=== PATIENT | female | born 1940 | race Caucasian/White ===

== ENCOUNTER 2016-10-18 16:29 | Inpatient (IN) ==
--- NOTE | 2016-10-18 16:59 | Diag Imaging Result Doc PS360 ---
EXAM: FLAT/UPRIGHT ABD/1 VIEW CHEST HISTORY: abd pain TECHNIQUE: Flat and upright abdomen with AP chest COMMENT: There are numerous air-fluid levels in the small bowel. There is some fluid in the stomach. There is minimal stool and gas in the distal colon. No evidence organomegaly or mass is present. There are no previous studies. The appearance of the chest has not changed significantly since 03/07/2014. IMPRESSION: Small bowel obstruction. Electronically signed by Rodrick Dumont 10/18/2016 4:57 PM
[2016-10-18 17:04] LABS: MANUAL DIFF NEEDED? NO
[2016-10-18 17:12] LABS: BASO% 0.3 % (0.0-0.8); EOS# 0.14 X1000 (0.0-0.7); EOS% 0.9 % (0.0-10.0); HEMATOCRIT 39.9 % (37.0-47.0); HEMOGLOBIN 13.6 g/dL (12.0-16.0); IMM GRAN# 0.04 X1000 (0.0-0.04); IMM GRAN% 0.3 % (0.0-0.5); LYMPH# 3.98 X1000 (1.2-3.4); MCH 31.5 PG (27-31); MCHC 34.1 g/dL (33-37); MCV 92.4 FL (81-99); MONO# 0.85 X1000 (0.11-0.59); MONO% 5.5 % (1.7-9.3); MPV 10.5 FL (7.4-10.4); PLT 339 X1000 (130-400); RBC 4.32 XMIL (4.2-5.4)
[2016-10-18 17:36] LABS: OCCULT BLOOD 1 NEGATIVE (NEGATIVE)
[2016-10-18] MEDS ORDERED: ZOFRAN ODT PO ONE (17:37)
[2016-10-18 17:57] LABS: AGAP 12; ALBUMIN 4.9 g/dL (3.5-5.0); ALKALINE PHOSPHATASE 66 U/L (32-104); AMYLASE 94 U/L (20-200); BUN 22 mg/dL (8-22); CALCIUM 10.5 mg/dL (8.8-10.2); CHLORIDE 95 mmol/L (98-107); COSMO 273; GOT 18 U/L (10-30); GPT 11 U/L (10-36); LIPASE 22 U/L (13-60); POTASSIUM 3.7 mmol/L (3.5-5.1); SODIUM 134 mmol/L (136-145); TCO2 28 mmol/L (25-35); TOTAL PROTEIN 7.9 g/dL (6.3-8.3)
[2016-10-18] MEDS ORDERED: NUBAIN IV ONE (17:58)
--- NOTE | 2016-10-18 18:16 | PROVIDER DOCUMENTATION ---
This chart was entered by Mercedes Hickman Scribe, acting as scribe for Tan Amaral MD. HPI-Abdominal Pain/GI Problem - General Source: patient - History of Present Illness-ABD Nature of Presenting Problems: 75 year old female presents to the ER with complaint of abdominal pain, nausea and vomiting since this am. Pt states she had a colonoscopy and EGD 2-3 weeks ago due to reoccurring diarrhea but has not received the results yet. Pt also complains of having gas and states that she took gas-x which usually relieves her symptoms but in this case it did not. Pt denies fever. Abdominal Pain Onset Location: reports: generalized abdomen Onset/Duration: reports: this morning Timing: reports: still present Associated Symptoms: reports: diarrhea, nausea, vomiting Last BM: this morning Rectal Bleeding: reports: none <Tan Amaral - Last Filed: 10/18/16 18:14> - General Source: patient - History of Present Illness-ABD Abdominal Pain Onset Location: reports: generalized abdomen Pain Radiation: reports: no radiation Quality of Pain: reports: aching Severity in ED: reports: severe Onset/Duration: reports: this morning Timing: reports: still present Activities at Onset: reports: light activity Exposure to sick contacts?: No Modifying Factors: improves with: nothing, eating Associated Symptoms: reports: diarrhea, nausea, vomiting Last BM: this morning Rectal Bleeding: reports: none Rectal Pain: reports: none Emesis Description: reports: clear Bruising or Bleeding Gums?: No Similar Symptoms Previously?: Yes <Elvis Hughes - Last Filed: 10/21/16 01:21> - General Chief Complaint: Abdominal Pain Stated Complaint: ABD PAIN/VOMITING Time Seen by Provider: 10/18/16 17:36 Allergies/Adverse Reactions: Patient Allergies Allergy/AdvReac Type Severity Reaction Status Date / Time No Known Allergies Allergy Verified 10/18/16 16:38 Home Medications: Home Medication List Medication Instructions Recorded Confirmed Last Taken Type Lisinopril/Hydrochlorothiazide 1 each PO DAILY 03/07/14 10/18/16 11/12/15 18:00 History [Zestoretic 20-12.5 Tablet] SIMVAstatin [Zocor] 1 mg PO DAILY 03/07/14 10/18/16 11/12/15 18:00 History Aspirin 81 mg PO DAILY 11/07/15 10/18/16 11/10/15 19:00 History Glimepiride [Amaryl] 2 mg PO DAILY 11/07/15 10/18/16 11/12/15 09:00 History Metformin HCl 500 mg PO BID 11/07/15 10/18/16 11/12/15 18:00 History Multivitamin [Multivitamins] 1 each PO DAILY 11/07/15 10/18/16 11/12/15 09:00 History Ubidecarenone [Co Q-10] 100 mg PO DAILY 11/07/15 10/18/16 11/12/15 09:00 History Biotin 10,000 mg PO DAILY 11/13/15 10/18/16 11/12/15 09:00 History Cholecalciferol (Vitamin D3) 1,000 unit PO DAILY 11/13/15 10/18/16 11/12/15 09: 00 History [D3-2000] Oxybutynin [Ditropan] 5 mg PO BID 11/13/15 10/18/16 11/13/15 04:30 History Potassium Chloride E.r. [Klor-Con] 20 meq PO DAILY 11/13/15 10/18/16 11/12/15 09 :00 History Vitamin B Complex 1 each PO DAILY 11/13/15 10/18/16 11/12/15 09:00 History Review of Systems - Adult - REVIEW OF SYSTEMS - ADULT Constitutional: denies: chills, fever Eyes: reports: no symptoms reported Ears, Nose, Mouth & Throat: reports: no symptoms reported Cardiovascular: reports: no symptoms reported Respiratory: reports: no symptoms reported Gastrointestinal: reports: abdominal pain, diarrhea, nausea, vomiting. denies: rectal bleeding Genitourinary: reports: no symptoms reported Musculoskeletal: reports: no symptoms reported Integumentary: reports: no symptoms reported Neurological: reports: no symptoms reported Psychiatric: reports: no symptoms reported Endocrine: reports: no symptoms reported Hematologic/Lymphatic: reports: no symptoms reported Allergic/Immunologic: reports: no symptoms reported All Other Systems: Reviewed and Negative <Tan Amaral - Last Filed: 10/18/16 18:14> - REVIEW OF SYSTEMS - ADULT ROS:: limited per condition Constitutional: reports: no symptoms reported. denies: chills, fever Eyes: reports: no symptoms reported Ears, Nose, Mouth & Throat: reports: no symptoms reported Cardiovascular: reports: no symptoms reported Respiratory: reports: no symptoms reported Gastrointestinal: reports: abdominal pain, diarrhea, nausea, vomiting Genitourinary: reports: no symptoms reported Musculoskeletal: reports: no symptoms reported Integumentary: reports: no symptoms reported Neurological: reports: no symptoms reported Psychiatric: reports: no symptoms reported Endocrine: reports: no symptoms reported Hematologic/Lymphatic: reports: no symptoms reported Allergic/Immunologic: reports: no symptoms reported All Other Systems: Reviewed and Negative <Elvis Hughes - Last Filed: 10/21/16 01:21> Past History - Adult - PAST MEDICAL HISTORY-ADULT Review of Records: reports: Nursing Assessment Review, Medications Reviewed Cardiovascular: reports: HTN, hyperlipidemia, murmur Endocrine/Immune: reports: Diabetes - PRIOR SURGERIES/PROCEDURES Surgical/Procedure History: reports: hysterectomy - IMMUNIZATION STATUS Childhood Immunizations: See Nurse Assessment Flu Vaccine: See Nurse Assessment - FAMILY HISTORY Family History: reviewed, not pertinent <Tan Amaral - Last Filed: 10/18/16 18:14> - PAST MEDICAL HISTORY-ADULT Review of Records: reports: Old Records Reviewed, Nursing Assessment Review, Medications Reviewed, Social history reviewed & non-contributory. Major Childhood Illnesses: reports: denies history Cardiovascular: reports: HTN, hyperlipidemia, murmur Respiratory: reports: denies history Gastrointestinal: reports: denies history Obstetrical/Gynecological: reports: denies history Genitourinary: reports: denies history Musculoskeletal: reports: denies history Neurological: reports: denies history Endocrine/Immune: reports: Diabetes Diabetes Type: Type 2 Other Conditions: reports: denies history - PRIOR SURGERIES/PROCEDURES Surgical/Procedure History: reports: hysterectomy - IMMUNIZATION STATUS Childhood Immunizations: See Nurse Assessment Flu Vaccine: See Nurse Assessment - FAMILY HISTORY Family History: reviewed, not pertinent - SOCIAL HISTORY Smoking: denies Substance Use: none/never <Elvis Hughes - Last Filed: 10/21/16 01:21> Physical Exam-General - CONSTITUTIONAL General Appearance: alert, no apparent distress - EYES Eyes: PERRL/EOMI, pink conjunctivae - HEAD, EARS, NOSE, MOUTH & THROAT HENMT: normocephalic/atraumatic, moist mucous membranes - NECK Neck: non-tender, normal inspection - RESPIRATORY Respiratory: lungs clear, normal breath sounds - CARDIOVASCULAR Cardiovascular: normal peripheral pulses, regular rate, rhythm - GASTROINTESTINAL (ABDOMEN) Abdominal Exam: soft, abnormal bowel sounds, distended, tenderness - MUSCULOSKELETAL Back Exam: no CVA tenderness, no vertebral tenderness Extremity: non-tender, normal inspection - SKIN Integumentary: normal color, warm/dry - NEUROLOGIC Neurologic: grossly normal, no motor/sensory deficits - PSYCHIATRIC Psych/Mental Status: normal mood/affect, normal thought content, normal thought process, oriented x 3 <Tan Amaral - Last Filed: 10/18/16 18:14> - PHYSICAL EXAM-ADULT Initial Vital Signs Reviewed: Yes - CONSTITUTIONAL General Appearance: alert, no apparent distress - EYES Eyes: PERRL/EOMI, pink conjunctivae - HEAD, EARS, NOSE, MOUTH & THROAT HENMT: normocephalic/atraumatic, moist mucous membranes - NECK Neck: non-tender, normal inspection - RESPIRATORY Respiratory: lungs clear, normal breath sounds - CARDIOVASCULAR Cardiovascular: normal peripheral pulses, regular rate, rhythm - GASTROINTESTINAL (ABDOMEN) Abdominal Exam: soft, abnormal bowel sounds, distended, tenderness - MUSCULOSKELETAL Back Exam: no CVA tenderness, no vertebral tenderness Extremity: non-tender, normal inspection - SKIN Integumentary: normal color, warm/dry - NEUROLOGIC Neurologic: grossly normal, no motor/sensory deficits - PSYCHIATRIC Psych/Mental Status: normal mood/affect, normal thought content, normal thought process, oriented x 3 <Elvis Hughes - Last Filed: 10/21/16 01:21> Progress - PLAN OF CARE/RESULTS Progress/Plan/Lab Results: Vital Signs - 8 hr 10/18/16 16:34 Temperature 97.8 F Pulse Rate 67 Respiratory Rate 18 Blood Pressure 98/62 O2 Sat by Pulse Oximetry 100 Laboratory Results - last 24 hr 10/18/16 10/18/16 17:03 17:27 WBC 15.33 H RBC 4.32 Hgb 13.6 Hct 39.9 MCV 92.4 MCH 31.5 H MCHC 34.1 RDW Std Deviation 13.9 Plt Count 339 MPV 10.5 H Immature Gran % (Auto) 0.3 Neut % (Auto) 67.0 Lymph % (Auto) 26.0 Morrow % (Auto) 5.5 Eos % (Auto) 0.9 Baso % (Auto) 0.3 Immature Gran # (Auto) 0.04 Neut # (Auto) 10.28 H Lymph # (Auto) 3.98 H Morrow # (Auto) 0.85 H Eos # (Auto) 0.14 Baso # (Auto) 0.04 Stool Occult Blood NEGATIVE Orders Category Date Time Status Saline Loc DIRECTED Care 10/18/16 16:31 Active NPO Diet 10/18/16 16:31 Active FLAT/UPRIGHT ABD/1 VIEW CHEST [RAD] Stat Exams 10/18/16 16:31 Completed AMYLASE [CHEM] Stat Lab 10/18/16 17:03 Received CBC WITH ELECTRONIC DIFF [HEME] Stat Lab 10/18/16 17:03 Completed COMPREHENSIVE METABOLIC PANEL [CHEM] Stat Lab 10/18/16 17:03 Received LIPASE [CHEM] Stat Lab 10/18/16 17:03 Received OCCULT BLOOD SCREEN STOOL PL Stat Lab 10/18/16 17:[address] W/POSS RFLX CULT [URINALYSIS] Stat Lab 10/18/16 16:31 Uncollected Result Diagrams: 10/18/16 17:03 10/18/16 17:03 - XRAY 1 XRAY Study: Abdomen Impression: Abnormal XRAY Interpretation: small bowel obstruction per radiologist - CHANGE OF SHIFT REPORT (ED Provider) Report Given and Care Transferred to:: [facility] Time of Transfer: 18:15 Items Pending: CT/MRI Results <Tan Amaral - Last Filed: 10/18/16 18:14> - PLAN OF CARE/RESULTS Progress/Plan/Lab Results: Vital Signs - 8 hr 10/18/16 16:34 10/18/16 19:50 Temperature 97.8 F 96 F L Pulse Rate 67 75 Respiratory Rate 18 16 Blood Pressure 98/62 140/66 O2 Sat by Pulse Oximetry 100 100 Laboratory Results - last 24 hr 10/18/16 10/18/16 10/18/16 17:03 17:03 17:27 WBC 15.33 H RBC 4.32 Hgb 13.6 Hct 39.9 MCV 92.4 MCH 31.5 H MCHC 34.1 RDW Std Deviation 13.9 Plt Count 339 MPV 10.5 H Immature Gran % (Auto) 0.3 Neut % (Auto) 67.0 Lymph % (Auto) 26.0 Morrow % (Auto) 5.5 Eos % (Auto) 0.9 Baso % (Auto) 0.3 Immature Gran # (Auto) 0.04 Neut # (Auto) 10.28 H Lymph # (Auto) 3.98 H Morrow # (Auto) 0.85 H Eos # (Auto) 0.14 Baso # (Auto) 0.04 Sodium 134 L Potassium 3.7 Chloride 95 L Carbon Dioxide 28 Anion Gap 12 BUN 22 Creatinine 0.7 Estimated GFR/1.73 m2 > 60 BUN/Creatinine Ratio 31 Glucose 131 H Calculated Osmolality 273 Calcium 10.5 H Total Bilirubin 0.40 AST 18 ALT 11 Alkaline Phosphatase 66 Total Protein 7.9 Albumin 4.9 Globulin 3.0 Albumin/Globulin Ratio 2.0 Amylase 94 Lipase 22 Stool Occult Blood NEGATIVE Orders Category Date Time Status Saline Loc DIRECTED Care 10/18/16 16:31 Active NPO Diet 10/18/16 16:31 Active ABDOMEN/PELVIS W/PO AND IV CON [CT] Stat Exams 10/18/16 17:43 Completed FLAT/UPRIGHT ABD/1 VIEW CHEST [RAD] Stat Exams 10/18/16 16:31 Completed AMYLASE [CHEM] Stat Lab 10/18/16 17:03 Completed CBC WITH ELECTRONIC DIFF [HEME] Stat Lab 10/18/16 17:03 Completed COMPREHENSIVE METABOLIC PANEL [CHEM] Stat Lab 10/18/16 17:03 Completed LIPASE [CHEM] Stat Lab 10/18/16 17:03 Completed OCCULT BLOOD SCREEN STOOL PL Stat Lab 10/18/16 17:[address] W/POSS RFLX CULT [URINALYSIS] Stat Lab 10/18/16 16:31 Uncollected Morphine Med 10/18/16 18:39 Discontinued 4 mg IV NOW ONE Nalbuphine [Nubain] Med 10/18/16 17:58 Discontinued 5 mg IV NOW ONE Ondansetron Odt [Zofran Odt] Med 10/18/16 17:37 Discontinued 4 mg PO NOW ONE Promethazine [Phenergan] Med 10/18/16 18:37 Discontinued 12.5 mg IV NOW ONE Sodium Chloride 0.9% Med 10/18/16 18:37 Discontinued 10 ml INJ NOW ONE Result Diagrams: 10/20/16 05:46 10/20/16 05:46 - CT/MRI 1 CT Study: Abdomen (DISTAL SMALL BOWEL OBSTRUCTION) <Elvis Hughes - Last Filed: 10/21/16 01:21> Departure <Tan Amaral - Last Filed: 10/18/16 18:14> - Departure Date of Disposition Decision: 10/20/16 Time of Disposition Decision: 21:02 Certified Medical Emergency: Emergent - Critical Care Note This patient required my direct & personal management of CC.: No <Elvis Hughes - Last Filed: 10/21/16 01:21> - Departure DIAGNOSIS: Small bowel obstruction due to adhesions Disposition: ADMITTED INPATIENT 09 Condition: Stable Attestation - Physician/ NACHO Attestation The physician spent face to face time with patient:: Yes Advanced Practice Provider documentation review:: Supervising physician onsite and consulted in the evaluation and care of this patient. The physician did have a face to face encounter with the patient. <Elvis Hughes - Last Filed: 10/21/16 01:21> This chart was documented by the indicated scribe, (Mercedes Hickman, [employer]) and accurately reflects the services I performed and decisions made by me, Tan Amaral MD, as attested by the provider's signature.
[2016-10-18] MEDS ORDERED: PHENERGAN IV ONE (18:37)
[2016-10-18] MEDS ORDERED: SODIUM CHLORIDE 0.9% INJ ONE (18:37)
[2016-10-18] MEDS ORDERED: MORPHINE IV ONE ×2 (18:39→23:00)
--- NOTE | 2016-10-18 20:54 | Diag Imaging Result Doc PS360 ---
EXAM: ABDOMEN/PELVIS W/PO AND IV CON HISTORY: pain TECHNIQUE: CT of the abdomen and pelvis with intravenous and oral contrast with radiation dose reduction (clarity.) COMMENT: There is mild dependent atelectasis present particularly in the posterior costophrenic sulci. There is some atherosclerotic calcification in the abdominal aorta. There is no evidence of aneurysm. The mesenteric vessels are patent. There are granulomata in the liver and spleen. There are no gallstones. There is free fluid present in the right paracolic gutter. The small bowel is markedly distended with fluid. The stomach contains some retained secretions. The colon is not distended. The adrenal glands and pancreas are within normal limits. There is a transition just shy of the terminal ileum in the right lower quadrant. Pelvis: The appendix is not clearly identifiable. There is free fluid in the pelvis. There has apparently been hysterectomy. There is some diverticulosis in the sigmoid colon. No definite evidence of diverticulitis is present. The regional skeleton appears to be intact. IMPRESSION: Distal small bowel obstruction. Free fluid. Electronically signed by Rodrick Dumont 10/18/2016 8:52 PM
[2016-10-18] MEDS ORDERED: NS 1,000 ML IV ONE (21:08)
[2016-10-18 21:18] LABS: URINE CULTURE PL NEEDED? NO
[2016-10-18 21:25] LABS: BILIRUBIN URINE NEGATIVE (NEGATIVE); BLOOD URINE 1+ (NEGATIVE); CLARITY CLEAR (CLEAR); COLOR YELLOW; GLUCOSE URINE NEGATIVE (NEGATIVE); LEUKOCYTES URINE NEGATIVE (NEGATIVE); NITRITE URINE NEGATIVE (NEGATIVE); PROTEIN URINE TRACE mg/dL (NEGATIVE); SP GRAVITY URINE 1.005; UROBILINOGEN URINE NORMAL
[2016-10-18 21:59] LABS: URINE SOURCE CATH
[2016-10-18 22:00] LABS: URINE EPITHELIAL CELLS <10 /HPF (<10); URINE RBC <10 /HPF (<10); URINE WBC <10 /HPF (<10)
[2016-10-18] MEDS: ZOFRAN IV PRN (23:00)
--- NOTE | 2016-10-19 05:43 | Diag Imaging Result Doc PS360 ---
EXAM: CHEST/ABD TUBE PLACEMENT HISTORY: NG tube placement TECHNIQUE: Two views COMPARISON: None. FINDINGS: There is a nasogastric tube overlying the esophagus and stomach. On one of the views the tip appears to be angled back up the esophagus at the GE junction. The lungs are clear. No free air beneath the diaphragm. There are multiple air distended loops of small bowel within the abdomen. Contrast fills the right collecting system. IMPRESSION: Small bowel obstruction. There is a note that the tube was advanced after the second film. Electronically signed by Farhan Roberson 10/19/2016 5:40 AM
[2016-10-19] MEDS ORDERED: NS 1,000 ML IV SCH (08:18)
[2016-10-19] MEDS: MORPHINE IV PRN ×3 (08:57→19:38)
[2016-10-19] MEDS: ZOFRAN IV PRN (09:07)
[2016-10-19 09:28] LABS: HEMATOCRIT 39.8 % (37.0-47.0); HEMOGLOBIN 13.3 g/dL (12.0-16.0); MCH 31.1 PG (27-31); MCHC 33.4 g/dL (33-37); MCV 93.2 FL (81-99); MPV 9.9 FL (7.4-10.4); RBC 4.27 XMIL (4.2-5.4)
[2016-10-19 09:42] LABS: AGAP 11; ALBUMIN 4.2 g/dL (3.5-5.0); ALKALINE PHOSPHATASE 55 U/L (32-104); BUN 20 mg/dL (8-22); CALCIUM 9.2 mg/dL (8.8-10.2); CHLORIDE 100 mmol/L (98-107); COSMO 275; GOT 18 U/L (10-30); GPT 9 U/L (10-36); MAGNESIUM 1.9 mg/dL (1.5-2.7); POTASSIUM 3.8 mmol/L (3.5-5.1); SODIUM 136 mmol/L (136-145); TCO2 25 mmol/L (25-35); TOTAL PROTEIN 7.5 g/dL (6.3-8.3)
--- NOTE | 2016-10-19 09:59 | HISTORY AND PHYSICAL ---
PRIMARY CARE PHYSICIAN: Dr. Escobedo. CHIEF COMPLAINT: Abdominal pain, nausea, vomiting, and diarrhea. HISTORY OF PRESENTING ILLNESS: This is a 75-year-old female who presents to [facility] ER with complaints of generalized abdominal pain , nausea, vomiting, and diarrhea. States that she has had the diarrhea for a couple months. Had a recent EGD/colonoscopy with Dr. Atkins in which she said they removed 1 polyp but otherwise no issues were found. She says that yesterday morning around 4 a.m. she began having generalized abdominal pain, nausea, vomiting, and the diarrhea worsened. She came to the emergency room for evaluation. An abdomen x-ray was obtained that showed a small bowel obstruction. So they did an abdomen and pelvic CT also that showed a distal small bowel obstruction with some free fluid. She had a white blood cell count of 15.33. Her stool for occult blood was negative. So, she was admitted for further evaluation and treatment. PAST MEDICAL HISTORY: Hypertension, hyperlipidemia, diabetes type 2, and a murmur since the age of 12. PAST SURGICAL HISTORY: Hysterectomy and a partial thyroidectomy. FAMILY HISTORY: Noncontributory. SOCIAL HISTORY: She currently lives with family. Denied any tobacco, alcohol, or illicit drug use. ALLERGIES: She has no known drug allergies. HOME MEDICATIONS: All of her medications will be held at this time as she is NPO but she normally takes aspirin 81 mg p.o. daily, biotin 18962 mg p.o. daily, vitamin D3 1000 units p.o. daily, Amaryl 2 mg p.o. daily, Zestoretic 20/12.5 p.o. daily, metformin 500 mg p.o. b.i.d., multivitamin p.o. daily, Ditropan 5 mg p.o. b.i.d., potassium 20 mEq p.o. daily, Zocor 40 mg p.o. daily, CoQ10 100 mg p.o. daily, and vitamin B complex 1 p.o. daily. LABORATORY DATA: Showed a white blood cell count of 15.33, a hemoglobin of 13.6 , hematocrit 39.9, platelets 339,000. Sodium of 134, potassium 3.7, chloride 95, CO2 28, BUN of 22 , creatinine 0.7, glucose 131. Amylase of 94, lipase 22. Urinalysis was negative. Stool for occult blood was negative. Abdomen x-ray showed a small bowel obstruction. Abdomen and pelvic CT showed a distal small bowel obstruction with free fluid. REVIEW OF SYSTEMS: She denied any fever, chills, blurred vision, dizziness, chest pain, coughing, shortness of breath. She was positive for generalized abdominal pain, nausea, vomiting, and diarrhea. Denied any burning or hurting with urination. PHYSICAL EXAMINATION: VITAL SIGNS: Temperature of 97.8 degrees, pulse 67, respirations 18, blood pressure 98/62, and was saturating 100% on room air. Currently, her blood pressure is 133/60. GENERAL: This is a 75-year-old female who is sitting up in the bed and answers all questions appropriately. HEENT: Normocephalic and atraumatic. Pupils are equal, round, reactive to light. Extraocular movements are intact. The oropharynx and nares are clear. NECK: Supple. LUNGS: Clear to auscultation bilaterally with equal lung expansion and chest wall movement. HEART: With regular rate and rhythm. No murmurs, rubs, or gallops. ABDOMEN: Soft. It is tender to palpation throughout the entire abdomen. Hypoactive bowel sounds x4 quadrants. EXTREMITIES: No clubbing, cyanosis, or edema. NEUROLOGICAL: The cranial nerves 2 through 12 are grossly intact. ASSESSMENT: 1. Generalized abdominal pain. 2. Nausea and vomiting. 3. Small bowel obstruction. 4. Diarrhea. 5. Leukocytosis, most likely reactive. PLAN: She was admitted to the medical unit at [place]. We placed an NG tube to low intermittent suction to her right naris. Will consult surgery. Recheck labs in the a.m. Continue her normal saline at 100 mL an hour, morphine 1-2 mg IV q.3 hours, and Zofran 4 mg IV q.4 hours p.r.n. Pt is a full code Dictated by MATY Chowdary for Song Lee MD cc: MATY Chowdary MD Amit V. Vora, MD [facility] CENTERBarrett
--- NOTE | 2016-10-19 17:05 | CONSULTATION ---
DATE OF CONSULTATION: 10/19/2016 CHIEF COMPLAINT: Abdominal pain, nausea, vomiting and diarrhea. HISTORY: This is a 75-year-old, thin lady who has had a 2-month history of diarrhea, had a colonoscopy a month ago with a polyp that was removed, the pathology of which is unknown at this time. Yesterday morning, about 4 a.m., she was awakened with severe crampy abdominal pain. Last bowel movement was 2 days ago. She denies passing any flatus in the past 24 hours. PAST MEDICAL HISTORY: Pertinent for hypertension, hyperlipidemia, type 2 diabetes. PREVIOUS SURGERY: Includes a remote open hysterectomy and a partial thyroidectomy. FAMILY HISTORY: Noncontributory. SOCIAL HISTORY: She is . Lives with her . Denies tobacco alcohol or drug use. She denies any drug allergies. MEDICATIONS: At home include: 1. Aspirin 81 mg daily. 2. Biotin daily. 3. Vitamin D3 daily. 4. Amaryl 2 mg daily. 5. Zestoretic 20/12.5 daily. 6. Metformin 5 mg b.i.d. 7. Multivitamin daily. 8. Ditropan 5 mg b.i.d. 9. Potassium 20 mEq daily. 10. Zocor 40 mg daily. 11. CoQ 10 at 100 mg daily. 12. Vitamin B complex, 1 daily. REVIEW OF SYSTEMS: Negative in all subsystems, except for her gastrointestinal subsystem, where she has the symptoms noted above. EXAMINATION: Vital signs: She is afebrile. Heart rate 77, respiratory rate 18, blood pressure 123/54. Neck: No cervical adenopathy. Lungs: Bilateral breath sounds. Heart: Regular rate and rhythm. Abdomen: Distended, tympanitic. No peritoneal signs are noted. No hernia noted. Extremities: No peripheral edema. Neurologic: She is awake and alert. DIAGNOSTICS/LABORATORIES: White count is 13,900, hemoglobin 13.3. BUN 20, creatinine 0.6. Urine is nitrite-negative. Small bowel obstruction, as noted on CT scan, with a probable point of obstruction in the distal ileum. Her colon is decompressed. ASSESSMENT: Small bowel obstruction. I agree with the nasogastric suction. I have discussed laparoscopy/possible laparotomy with her. She is reflecting. cc: Dandy Santacruz MD
[2016-10-19] MEDS: NS 1,000 ML IV SCH (19:29)
[2016-10-20] MEDS: MORPHINE IV PRN ×2 (00:39→20:58)
[2016-10-20] MEDS: NS 1,000 ML IV SCH ×2 (03:27→11:54)
[2016-10-20 06:25] LABS: HEMATOCRIT 34.7 % (37.0-47.0); HEMOGLOBIN 11.2 g/dL (12.0-16.0); MCH 30.8 PG (27-31); MCHC 32.3 g/dL (33-37); MCV 95.3 FL (81-99); MPV 10.2 FL (7.4-10.4); RBC 3.64 XMIL (4.2-5.4)
[2016-10-20 06:45] LABS: AGAP 9; ALBUMIN 3.4 g/dL (3.5-5.0); ALKALINE PHOSPHATASE 47 U/L (32-104); BUN 13 mg/dL (8-22); CALCIUM 7.6 mg/dL (8.8-10.2); CHLORIDE 104 mmol/L (98-107); COSMO 276; GOT 14 U/L (10-30); GPT 7 U/L (10-36); POTASSIUM 3.3 mmol/L (3.5-5.1); SODIUM 138 mmol/L (136-145); TCO2 25 mmol/L (25-35); TOTAL PROTEIN 5.7 g/dL (6.3-8.3)
--- NOTE | 2016-10-20 07:47 | Diag Imaging Result Doc PS360 ---
EXAM: FLAT/UPRIGHT ABD/1 VIEW CHEST HISTORY: bowel obstruction TECHNIQUE: Flat and upright abdomen with AP chest COMMENT: There is gas and stool in the colon. There is an NG tube with its tip in the stomach. The small bowel and stomach are not distended. The air-fluid levels which were present on 07/18/2016 are no longer demonstrated. There is no evidence organomegaly or mass. CHEST: The heart size and pulmonary vascularity are within normal limits. There is been no significant change since the previous study. IMPRESSION: Nonspecific abdomen. Electronically signed by Rodrick Dumont 10/20/2016 7:44 AM
[2016-10-20] MEDS ORDERED: POTASSIUM CHLORIDE 20 MEQ/SWI 20 MEQ/100 ML IVPB IV ONE (09:56)
--- NOTE | 2016-10-20 10:41 | PROGRESS NOTE ---
DATE: 10/20/2016 SUBJECTIVE: Patient giving self a bed bath at this time. States she continues to have diarrhea but feels less distended in her abdomen today. OBJECTIVE: Vital Signs: Temperature 97.7 degrees, pulse 64, respirations 18, blood pressure 144/57, saturating 100% on room air. General: This is a 75-year-old, female who answers questions appropriately. HEENT: Normocephalic and atraumatic. Pupils are equal, round, and reactive to light. The extraocular movements are intact. The oropharynx and nares are clear. Neck: Supple. Lungs: Clear to auscultation bilaterally with equal lung expansion and chest wall movement. Heart: With regular rate and rhythm. No murmurs, rubs, or gallops. Abdomen: Softer today. Less distended. Bowel sounds are present x4 quadrants. Extremities: No clubbing, cyanosis, or edema. Neurological: The cranial nerves 2-12 are grossly intact. Laboratory Data: Showed a white blood cell count of 11.39, hemoglobin 11.2, hematocrit 34.7, platelets 275,000. Sodium 138, potassium 3.3, chloride 104, CO2 25, BUN of 13, with a creatinine of 0.3, glucose of 105. An abdominal x-ray this morning that showed a nonspecific abdomen, stating the small bowel and stomach are not distended, and that the air-fluid levels that were present on 07/18/2016 are no longer demonstrated. ASSESSMENT AND PLAN: 1. Small bowel obstruction. Continue the nasogastric tube to her right naris to low intermittent suction. Surgery following. 2. Diarrhea. This is secondary to #1 and we will continue to follow. 3. Leukocytosis, improved. 4. Generalized abdominal pain, improved. We will continue her normal saline at 100 mL an hour. She is nothing per oral at this time. Morphine 1-2 mg intravenous every 3 hours and Zofran 4 mg intravenous every 4 hours as needed. We will recheck a CBC and a BMP. 5. Hypokalemia. We will supplement with potassium today and recheck labs in the morning. Dictated by MATY Chowdary for Justin Sloan MD cc: MATY Chowdary MD pt examined, agree with above APENOT MTDD
[2016-10-20] MEDS ORDERED: TYLENOL PO PRN (11:38)
[2016-10-20] MEDS: CLINIMIX E 4.25%-5% SOLUTION 1,000 ML IV SCH (13:59)
[2016-10-21] MEDS: CLINIMIX E 4.25%-5% SOLUTION 1,000 ML IV SCH ×3 (00:05→19:02)
[2016-10-21 05:49] LABS: MANUAL DIFF NEEDED? NO
[2016-10-21 06:01] LABS: BASO% 0.2 % (0.0-0.8); EOS# 0.14 X1000 (0.0-0.7); EOS% 2.2 % (0.0-10.0); HEMOGLOBIN 10.8 g/dL (12.0-16.0); IMM GRAN# 0.01 X1000 (0.0-0.04); IMM GRAN% 0.2 % (0.0-0.5); LYMPH# 1.78 X1000 (1.2-3.4); LYMPH% 27.9 % (20.5-51.1); MCHC 32.7 g/dL (33-37); MCV 94.8 FL (81-99); MONO# 0.54 X1000 (0.11-0.59); MONO% 8.5 % (1.7-9.3); MPV 10.2 FL (7.4-10.4); PLT 259 X1000 (130-400); RBC 3.48 XMIL (4.2-5.4)
[2016-10-21 06:09] LABS: AGAP 6; BUN 15 mg/dL (8-22); CALCIUM 8.5 mg/dL (8.8-10.2); CHLORIDE 101 mmol/L (98-107); COSMO 276; POTASSIUM 3.3 mmol/L (3.5-5.1); SODIUM 136 mmol/L (136-145); TCO2 29 mmol/L (25-35)
[2016-10-21] MEDS: DULCOLAX PR SCH (08:29)
[2016-10-21] MEDS: POTASSIUM CHLORIDE 20 MEQ/SWI 20 MEQ/100 ML IVPB IV SCH ×2 (09:51→16:06)
[2016-10-21] MEDS: NS 500 ML IV SCH ×2 (09:51→14:50)
--- NOTE | 2016-10-21 10:15 | PROGRESS NOTE ---
DATE: 10/21/2016 SUBJECTIVE: Patient sitting on side of the bed. No complaints voiced. OBJECTIVE: Vital Signs: Temperature 98.2 degrees, pulse 69, respirations 18, blood pressure 133/57. General: This is a 75-year-old female, who is sitting on the side of the bed, answers questions appropriately. HEENT: Normocephalic and atraumatic. Pupils are equal, round, reactive to light. Extraocular movements are intact. Oropharynx and nares are clear. Neck: Supple. Lungs: Clear to auscultation bilaterally with equal lung expansion and chest wall movement. Heart: With regular rate and rhythm. No murmurs, rubs, or gallops. Abdomen: Much softer today, less tender. Bowel sounds are present x4 quadrants. She continues to have NG tube to her right nares to low intermittent suction. Extremities: No clubbing, cyanosis, or edema. Neurological: The cranial nerves 2-12 appear grossly intact. LABORATORY DATA: Shows a white blood cell count of 6.38, hemoglobin 10.8, hematocrit 33.0, platelets 259. Sodium 136, potassium 3.3, chloride 101, CO2 29, BUN of 15, creatinine 0.4, glucose 153. ASSESSMENT: 1. Small bowel obstruction. Surgery continues to follow. It is being discussed that surgery will order a small bowel follow through for today. She continues to have her nasogastric tube to her right naris to low intermittent suction. 2. Diarrhea has subsided at this point; this is most likely secondary to #1. We will continue to follow. 3. Leukocytosis, resolved. 4. Generalized abdominal pain, resolved. 5. Hypokalemia. We will supplement with 20 mEq of potassium intravenous now, repeat in 4 hours and recheck labs in the morning. Dictated by MATY Chowdary for Justin Sloan MD cc: MATY Chowdary MD pt examined, agree with above APENOT MTDD
--- NOTE | 2016-10-21 15:39 | Diag Imaging Result Doc PS360 ---
EXAM: SMALL BOWEL SERIES ONLY HISTORY: sbo TECHNIQUE: Single contrast barium was administered via the NG tube and by mouth. COMPARISON: Acute abdominal series 10/20/2016. CT abdomen and pelvis 10/18/2016 FINDINGS: The skiver sock linings radiograph demonstrates mild residual fecal material within the cecum and rectosigmoid. There is a nasogastric tube in place. No small bowel distention is appreciated on the current study Barium was administered via the nasogastric tube and passes readily beyond the stomach into the proximal small bowel. Transit time through the small bowel is normal with contrast reaching colon within two hours. There are mildly prominent jejunal and ileal loops measuring up to 3.5 cm. The terminal ileum is not specifically visualized, however, the terminal ileal area is unremarkable. There is moderate retained fecal material within the cecum. There is no evidence for high-grade obstruction. IMPRESSION: Normal transit time through the colon with contrast reaching the cecum at two hours. No evidence for high-grade mechanical obstruction. Mild jejunal and ileal prominence measuring up to 3.5 cm. Electronically signed by Lizette Dlearosa 10/21/2016 3:36 PM
[2016-10-22] MEDS: CLINIMIX E 4.25%-5% SOLUTION 1,000 ML IV SCH ×2 (04:54→15:27)
[2016-10-22 05:37] LABS: MANUAL DIFF NEEDED? NO
[2016-10-22 05:45] LABS: BASO% 0.2 % (0.0-0.8); EOS# 0.08 X1000 (0.0-0.7); EOS% 1.3 % (0.0-10.0); HEMATOCRIT 32.9 % (37.0-47.0); HEMOGLOBIN 10.8 g/dL (12.0-16.0); IMM GRAN# 0.01 X1000 (0.0-0.04); IMM GRAN% 0.2 % (0.0-0.5); LYMPH# 1.96 X1000 (1.2-3.4); LYMPH% 32.9 % (20.5-51.1); MCH 31.1 PG (27-31); MCHC 32.8 g/dL (33-37); MCV 94.8 FL (81-99); MONO# 0.46 X1000 (0.11-0.59); MONO% 7.7 % (1.7-9.3); MPV 10.1 FL (7.4-10.4); NEUT% 57.7 % (42.2-75.2); PLT 265 X1000 (130-400); RBC 3.47 XMIL (4.2-5.4)
[2016-10-22 06:01] LABS: AGAP 8; BUN 15 mg/dL (8-22); CALCIUM 8.8 mg/dL (8.8-10.2); CHLORIDE 105 mmol/L (98-107); COSMO 284; MAGNESIUM 2.1 mg/dL (1.5-2.7); POTASSIUM 3.5 mmol/L (3.5-5.1); SODIUM 141 mmol/L (136-145); TCO2 28 mmol/L (25-35)
[2016-10-22] MEDS: DULCOLAX PR SCH (09:38)
--- NOTE | 2016-10-22 13:54 | PROGRESS NOTE ---
DATE: 10/22/2016 SUBJECTIVE: Patient has no focal complaints. OBJECTIVE: Blood pressure was 141/52, heart rate 62, respiratory rate 18, temperature 97.7 degrees, 100% saturation on room air.Cardiovascular: Regular rate and rhythm. Pulmonary: Bilateral breath sounds. Clear to auscultation. GI: Soft, nontender, nondistended. Bowel sounds are positive. Extremities: No clubbing or cyanosis. Lymphatics: No peripheral edema. Neurological: Nonfocal. LABORATORY DATA: Unremarkable. Hemoglobin and hematocrit is 10 and 32. White count is normal. CMP normal. PROBLEM LIST: 1. Partial small bowel obstruction. Clinically, she appears to be improved. Small-bowel follow- through was negative. NG is out. We will advance her diet. Surgery is following. 2. Leukocytosis. That has resolved. 3. Hypokalemia. That also has improved. 4. Disposition. If she tolerates p.o. diet I think we will probably get her home in the next 24 hours at the discretion of Dr. Santacruz. cc: Justin Sloan MD
[2016-10-22] MEDS: MIRALAX PO SCH (14:18)
[2016-10-22] MEDS: LACTULOSE PO SCH (22:05)
[2016-10-23] MEDS: CLINIMIX E 4.25%-5% SOLUTION 1,000 ML IV SCH ×2 (00:31→12:49)
--- NOTE | 2016-10-23 07:19 | Diag Imaging Result Doc PS360 ---
EXAM: ABDOMEN FLAT/UPRIGHT HISTORY: sbo TECHNIQUE: Two views COMPARISON: 10/20/2016 FINDINGS: There is contrast throughout the colon. There are several colonic diverticula. The bowel loops are not dilated. No organomegaly. No free air beneath the diaphragm. IMPRESSION: No bowel obstruction. Electronically signed by Farhan Roberson 10/23/2016 7:16 AM
[2016-10-23] MEDS: LACTULOSE PO SCH (08:31)
[2016-10-23] MEDS: MIRALAX PO SCH (08:31)
[2016-10-23] MEDS: DULCOLAX PR SCH (08:31)
[2016-10-23 12:21] VITALS: BP 146/56
--- NOTE | 2016-10-24 16:37 | DISCHARGE SUMMARY ---
ADMISSION DATE: 10/18/2016 DISCHARGE DATE: 10/23/2016 PRIMARY CARE PHYSICIAN: Dr. Escobedo. ADMISSION DIAGNOSES: 1. Generalized abdominal pain. 2. Nausea, vomiting. 3. Small bowel obstruction. 4. Diarrhea. 5. Leukocytosis most likely reactive. DISCHARGE DIAGNOSES: 1. Small bowel obstruction resolved. 2. Leukocytosis resolved. 3. Hypokalemia resolved. 4. Leukocytosis resolved. 5. Diarrhea resolved. SUMMARY OF FINDINGS: This is a 75-year-old female who presented with generalized abdominal pain, nausea, vomiting and diarrhea. States she had diarrhea for a couple months and had a recent EGD and colonoscopy with Dr. Atkins in which they said they removed 1 polyp from her colon but otherwise no other issues were found. Stated around 4 a.m. on the morning of arrival she began having generalized abdominal pain, nausea, vomiting and diarrhea that worsened. She came to the emergency room for evaluation, had an abdomen x-ray that showed a small bowel obstruction. They did an abdomen CT also that showed a distal small-bowel obstruction with some free fluid, had a white count of 15.33. Her stool for occult blood was negative. She was admitted and started on NG tube to low intermittent suction. Surgery was following. She had daily abdominal x-rays and on 10/20/2016 her abdomen x-ray showed a nonspecific abdomen. On 10/21 she had a small bowel followthrough x-ray that showed normal transit time through the colon with contrast reaching the cecum at 2 hours, no evidence for high-grade mechanical obstruction. We removed her NG tube at that time. She was able to tolerate food. She did have a positive bowel movement. Her abdominal pain resolved and it was felt that she could safely be discharged home. DISCHARGE MEDICATIONS: Aspirin 81 mg p.o. daily, biotin 10,000 mg p.o. daily, vitamin D3 1000 units p.o. daily, Glimepiride 2 mg p.o. daily, will give her prescription for lactulose 30 mL p.o. daily #30 with no refills, continue her Zestoretic 20/12.5 one p.o. daily, metformin 500 mg p.o. b.i.d., multivitamin p.o. daily, Ditropan 5 mg p.o. daily, MiraLAX 17 g p.o. daily #30 with no refills, potassium 20 mEq p.o. daily, Zocor 40 mg p.o. daily, Co-Q10 100 mg p.o. daily and a vitamin B complex p.o. daily. FOLLOWUP: She will need to follow up with Dr. Escobedo in 1-2 weeks and call the office for an appointment. Dictated by MATY Chowdary for Justin Sloan MD cc: MD Justin Garsia MD
== END 2016-10-23 14:43 | disposition home or self-care (01) ==
LOC: P.ED 16:29 → P.MEDSURG 21:24 → SUATTDRO 21:24
PROVIDERS: ATTEND Internal Medicine

== ENCOUNTER 2018-09-28 07:48 | Inpatient (IN) ==
--- NOTE | 2018-09-28 08:47 | PROVIDER DOCUMENTATION ---
HPI-Musculoskeletal Pain/Inj - GENERAL Chief Complaint: Back Pain Stated Complaint: fall from standing Time Seen by Provider: 09/28/18 07:49 Source: patient - HX OF PRESENT ILLNESS-MUSKULOSKELTAL Nature of Presenting Problem: patient fell from standing position, complained of the left hip and lower back pain, stated she couldn't bear weight, both legs in equal length, good pedal pulses bilaterally. Quality of Pain: reports: sharp, throbbing, tightness Severity in ED: moderate Onset/Duration: abrupt, this morning Timing: still present Modifying Factors: improves with: immobilization, movement Any recent injury?: Yes Locality of Occurance: Home Similar Symptoms Previously?: No Recently seen or treated by another doctor?: No - FALL INJURY Location of Pain/Injury: denies: neck, back Pain Radiation: reports: back, buttocks, groin Reason for Fall: reports: lost balance, slipped Symptoms prior to fall:: reports: none Loss of Consciousness: no loss of consciousness Injury Associated Symptoms: reports: unable to bear weight. denies: chest pain, diaphoresis, nausea - BACK & NECK PAIN/INJURY Back/Neck Pain Location: reports: lumbar spine Back/Neck Pain Radiation: reports: Buttocks. denies: headache, shoulders Context / Method of Injury: reports: fall Associated Symptoms: reports: lower back pain. denies: loss of bladder control, loss of bowel control, fever, muscle spasms, numbness in legs/feet, numbness in upper ext, sensory/motor loss, tingling in legs/feet - HIP/PELVIS PAIN/INJURY Hip Pain Location: reports: hip (L) Pain Radiation: reports: back, buttocks - LOWER EXTREMITY PAIN/INJURY Context / Method of Injury: reports: fell Review of Systems - Adult - REVIEW OF SYSTEMS - ADULT Constitutional: denies: fever Eyes: reports: no symptoms reported Ears, Nose, Mouth & Throat: reports: no symptoms reported Cardiovascular: reports: no symptoms reported Respiratory: reports: no symptoms reported Gastrointestinal: reports: no symptoms reported Genitourinary: reports: no symptoms reported Musculoskeletal: reports: see HPI, bone pain, joint pain Integumentary: reports: no symptoms reported Neurological: reports: no symptoms reported Psychiatric: reports: no symptoms reported Endocrine: reports: no symptoms reported Hematologic/Lymphatic: reports: no symptoms reported Allergic/Immunologic: reports: no symptoms reported Past History - Adult - PAST MEDICAL HISTORY-ADULT Review of Records: reports: Nursing Assessment Review Major Childhood Illnesses: reports: denies history Cardiovascular: reports: HTN, hyperlipidemia, murmur Respiratory: reports: denies history Gastrointestinal: reports: denies history Obstetrical/Gynecological: reports: denies history Genitourinary: reports: denies history Musculoskeletal: reports: denies history Neurological: reports: denies history Endocrine/Immune: reports: Diabetes Other Conditions: reports: denies history - PRIOR SURGERIES/PROCEDURES Surgical/Procedure History: reports: hysterectomy - IMMUNIZATION STATUS Childhood Immunizations: See Nurse Assessment Flu Vaccine: See Nurse Assessment - FAMILY HISTORY Family History: reviewed, not pertinent Physical Exam-Injury Related - Physical Exam-Injury Related Initial Vital Signs Reviewed: Yes General Appearance: alert, no apparent distress Eyes: PERRL/EOMI Head, Ears, Nose, Mouth & Throat: normocephalic/atraumatic Neck: non-tender Respiratory: chest non-tender, lungs clear, normal breath sounds, no pleuratic chest pain, no respiratory distress, no accessory muscle use Cardiovascular: regular rate, rhythm, no edema, no gallop Abdominal Exam: non tender, soft Back Exam: no vertebral tenderness, decreased range of motion. negative: vertebral tenderness Extremity: tenderness, other (left hip pain, pain worse with movement) Integumentary: normal color, warm/dry Neurologic: grossly normal, no motor/sensory deficits - Glascow Coma Score Best Eye Response ([place]): (4) open spontaneously Best Verbal Response ([place]): (5) oriented Best Motor Response ([place]): (6) obeys commands Progress - PLAN OF CARE/RESULTS Progress/Plan/Lab Results: Vital Signs - 8 hr 09/28/18 10:25 09/28/18 10:30 09/28/18 10:39 Pulse Rate Blood Pressure 128/63 O2 Sat by Pulse Oximetry 96 95 96 09/28/18 10:40 09/28/18 10:50 09/28/18 11:00 Pulse Rate Blood Pressure O2 Sat by Pulse Oximetry 95 94 L 96 09/28/18 11:01 Pulse Rate 82 Blood Pressure 147/67 O2 Sat by Pulse Oximetry 95 Laboratory Results - last 24 hr 09/28/18 08:33 POC Glucose 121 H Orders Category Date Time Status Admit [facility] Routine AdmDCTranf 09/28/18 10:28 Active Activity - Up Ad Praveena ORDERED Care 09/28/18 10:25 Active Regular Diet Diet 09/28/18 10:[address] PELVIS W/O CONTRAST [CT] Stat Exams 09/28/18 09:10 Completed LUMBAR SPINE [RAD] Stat Exams 09/28/18 07:49 Completed XRAY HIP UNILATERAL LT [RAD] Stat Exams 09/28/18 07:49 Completed 0.9% Sodium Chloride Inj [Ns] 1,000 ml Med 09/28/18 10:25 Discontinued IV 125 mls/hr Morphine Med 09/28/18 10:50 Discontinued 2 mg .ROUTE .STK-MED ONE Morphine Med 09/28/18 10:25 Active 2 mg IV Q2H PRN PRN Ondansetron [Zofran] Med 09/28/18 10:25 Active 4 mg IV Q4H PRN PRN Transfer/Admit Order [TRANSFER] Routine Transfer 09/28/18 10:25 Completed - CONSULTS/PCP/HOSPITALIST Notification #1 *Consult/PCP/Hospitalist*: Dr Carpenter. orthopedic Time Discussed: 09:11 Reason/Comments: would like ct scan and admit to hospitalist Departure - Departure Date of Disposition Decision: 09/28/18 Time of Disposition Decision: 10:23 DIAGNOSIS: Pubic ramus fracture Disposition: ADMITTED INPATIENT 09 Certified Medical Emergency: Emergent Condition: Good - Critical Care Note This patient required my direct & personal management of CC.: No Attestation - Physician/ NACHO Attestation Patient care was provided by Advanced Practice Provider:: No The physician spent face to face time with patient:: Yes Advanced Practice Provider documentation review:: Supervising physician onsite and consulted in the evaluation and care of this patient. The physician did have a face to face encounter with the patient.
--- NOTE | 2018-09-28 09:22 | Diag Imaging Result Doc PS360 ---
EXAM: LUMBAR SPINE 09/28/2018 HISTORY: back pain, fall TECHNIQUE: Lumbosacral spine with obliques five views COMMENT: The pedicles are intact. There is anterior osteophyte formation at the L2-3 disc space. There is ankylosis at L5-S1. Compared to 08/16/2018 the appearance of the lumbar spine has not changed significantly. IMPRESSION: No evidence of acute bony abnormality. Electronically signed by Rodrick Dumont 09/28/2018 9:20 AM
--- NOTE | 2018-09-28 09:23 | Diag Imaging Result Doc PS360 ---
EXAM: XRAY HIP UNILATERAL LT 09/28/2018 HISTORY: hip pain, fall TECHNIQUE: Left hip two views COMMENT: There is no evidence of dislocation. There are fractures of the main pubic bone as well as the anterior inferior pubic ramus and the posterior superior pubic ramus. The latter may involve portions of the acetabulum. IMPRESSION: Multiple fractures of the anterior pelvic ring. No evidence of femoral fracture or dislocation. Electronically signed by Rodrick Dumont 09/28/2018 9:21 AM
--- NOTE | 2018-09-28 10:12 | Diag Imaging Result Doc PS360 ---
CT PELVIS W/O CONTRAST - 09/28/2018 INDICATION: pelvis fracture COMPARISON: 09/28/2018 FINDINGS: There is nondisplaced fracture of the left superior pubic ramus. There is mildly displaced fracture of the left inferior pubic ramus. There is nondisplaced fracture of the left sacral wing. No hip fracture or dislocation. Soft tissues are clear. IMPRESSION: Fractures of the left-sided pubic rami. Nondisplaced fracture of the left sacral wing. This exam was performed using automated exposure control, adjustment of mA or kV according to patient size, and/or use of iterative reconstruction technique Electronically signed by Rambo Casillas 09/28/2018 10:10 AM
[2018-09-28] MEDS ORDERED: NS 1,000 ML IV ONE ×2 (10:25→18:00)
[2018-09-28] MEDS ORDERED: MORPHINE ONE (10:50)
[2018-09-28] MEDS: ZOFRAN IV PRN ×2 (10:55→21:34)
[2018-09-28] MEDS: MORPHINE IV PRN ×3 (10:56→21:34)
--- NOTE | 2018-09-28 14:03 | ORTHOPAEDICS CONSULTATION ---
DATE: 09/28/2018 CHIEF COMPLAINT: Left hip pain status post fall. HISTORY OF PRESENT ILLNESS: Ms Adkins is a 77-year-old female, who is complaining of left hip pain and inability to bear weight on the left lower extremity after falling onto her left hip. She denies any loss of consciousness. She denies pain with rest, but complains of pain with weightbearing. She presented to the emergency department, where radiographic findings revealed a left nondisplaced superior pubic rami fracture and a left inferior pubic rami fracture and a left nondisplaced sacral wing fracture, and we were asked for further evaluation and treatment. For past medical history, past surgical history, allergies, and medications, see the Admission History and Physical. REVIEW OF SYSTEMS: Positive for left hip pain. All others negative. PHYSICAL EXAMINATION: General: This is a well developed, well-nourished female. She is alert, oriented, and cooperative with the examination. She is in no acute distress. Vital Signs: Stable. HEENT: Head is normocephalic, atraumatic. Neck: Supple. Respiratory: Breathing is nonlabored. Abdomen: Nondistended. Neurologic: Sensation of her bilateral extremities is intact. Musculoskeletal: Exam of her left hip reveals full range of motion with pain. She has tenderness over her left inferior pubic rami. IMAGING: CT of her pelvis reveals a nondisplaced left superior pubic rami fracture and minimally displaced left inferior pubic rami fracture and a nondisplaced left sacral wing fracture ASSESSMENT: Left pubic rami fractures and left sacral wing fracture that are nondisplaced and stable. PLAN: She is to be weightbearing as tolerated with a front wheel walker. We will have her start working with Physical Therapy. We recommend once she is medically stable to be admitted to a rehabilitation facility, and she can follow up with us in the office once she is discharged. Dictated by MILAD Voss for Waylon Mcgee MD cc: MILAD Voss MD Amit V. Vora, MD
[2018-09-28 17:27] LABS: URINE SOURCE CLEAN CATCH
[2018-09-28 17:32] LABS: BILIRUBIN URINE NEGATIVE (NEGATIVE); BLOOD URINE NEGATIVE (NEGATIVE); COLOR YELLOW; GLUCOSE URINE NEGATIVE (NEGATIVE); KETONE URINE 20 mg/dL (NEGATIVE); LEUKOCYTES URINE NEGATIVE (NEGATIVE); NITRITE URINE NEGATIVE (NEGATIVE); PROTEIN URINE NEGATIVE (NEGATIVE); SP GRAVITY URINE 1.013; TURBIDITY URINE CLEAR (CLEAR); UR EPITHELIAL CELLS <10 /HPF (<10); URINE BACTERIA NEGATIVE /HPF; URINE RBC <10 /HPF (<10); URINE WBC <10 /HPF (<10); UROBILINOGEN URINE NORMAL (NORMAL)
--- NOTE | 2018-09-28 19:35 | HISTORY AND PHYSICAL ---
HISTORY OF PRESENT ILLNESS: Ms. Adkins, who is a 77-year-old white female, a known case of diabetes, hypertension, hyperlipidemia, was admitted with a history of falls. She fell and fractured the left-sided pubic rami and nondisplaced fracture of the left sacral wing. She has a known case of diabetes and hypertension. PAST SURGICAL HISTORY: Reveals history of thyroid surgery as well as hysterectomy. The patient has been compliant with her medications. MEDICATIONS: Include baby aspirin, Biotin, calcium carbonate, cholecalciferol, diclofenac, glimepiride, lisinopril HCT, metformin, multivitamin, omeprazole, oxybutynin, potassium, turmeric, and coenzyme Q as well as vitamin B complex tablets. REVIEW OF SYSTEMS: Other than pain, it is noncontributory. This happened while she was handling her dogs. Review of systems otherwise negative except for generalized weakness. PHYSICAL EXAMINATION: VITAL SIGNS: Reveal temperature normal, pulse 80 per minute, respiratory rate 19 per minute, blood pressure 123/49. HEENT: Head normocephalic. Pupils PERRLA. Fundus examination not done. ENT examination unremarkable. NECK: Supple. JVP normal. There is no evidence of lymphadenopathy, thyroid enlargement, pedal edema, calf tenderness, anemia, cyanosis or clubbing. Pedal pulses well felt. BREAST EXAM: Not done. CHEST: Normal inspection. LUNGS: Clear to auscultation. PMI in the normal position. HEART: Sounds normal. No murmur, gallop or rub noted. ABDOMEN: Nondistended. Hernial orifice normal. No guarding, rigidity, free fluid, masses, or organomegaly. Bowel sounds normal. RECTAL EXAM: Deferred. CENTRAL NERVOUS SYSTEM: Functions are normal. Motor and sensory system examination unremarkable. Deep tendon reflexes normal. Plantars downgoing. Skull and spine examination normal for age. No cerebellar signs or signs of meningeal irritation local motor exam. SKIN: Unremarkable except for tenderness in the pubic area. IMPRESSION: Fracture of the pubic rami and Sacral wingon the left side. PLAN: Get the pain relief and help her nausea as well as physical therapy at a later date. cc: Sarbjit Escobedo MD MTDD
[2018-09-28] MEDS: GLUCOPHAGE PO SCH (21:33)
[2018-09-28] MEDS: ZOCOR PO SCH (21:33)
[2018-09-28] MEDS: DITROPAN PO SCH (21:33)
[2018-09-28] MEDS: PRINZIDE 20/12.5MG PO SCH (22:56)
[2018-09-28] MEDS: VOLTAREN PO SCH (22:56)
[2018-09-29] MEDS ORDERED: NS 1,000 ML ONE (02:02)
[2018-09-29] MEDS: AMARYL PO SCH ×2 (03:49→08:36)
[2018-09-29] MEDS: MORPHINE IV PRN ×4 (03:58→21:08)
[2018-09-29] MEDS: ZOFRAN IV PRN (03:58)
[2018-09-29] MEDS: VITAMIN D PO SCH (08:36)
[2018-09-29] MEDS: DITROPAN PO SCH ×2 (08:36→21:08)
[2018-09-29] MEDS: GLUCOPHAGE PO SCH ×2 (08:37→21:08)
[2018-09-29] MEDS: COENZYME Q10 PO SCH (08:37)
[2018-09-29] MEDS: ASPIRIN PO SCH (08:37)
[2018-09-29] MEDS: PRILOSEC PO SCH (08:37)
[2018-09-29] MEDS: KLOR-CON PO SCH (08:37)
[2018-09-29] MEDS: VOLTAREN PO SCH ×2 (08:37→21:08)
[2018-09-29] MEDS: THERA M PLUS PO SCH (08:37)
[2018-09-29] MEDS: VICON-C PO SCH (08:37)
[2018-09-29] MEDS: CALTRATE 600 + D PO SCH (08:37)
--- NOTE | 2018-09-29 09:07 | ORTHOPAEDICS PROGRESS NOTE ---
DATE: 09/29/2018 SUBJECTIVE: Ms. Adkins is a 77-year-old female with left pubic rami fractures and the left sacral wing fracture that are stable. She continues to complain of some pain, but she has been able to get up some and is doing a little bit better. OBJECTIVE: General: She is a well-developed, well-nourished female. She is alert, oriented, cooperative with the examination. She is in no acute distress. Vital Signs: Stable. She is afebrile. Extremities: Her bilateral lower extremities are grossly neurovascularly intact. ASSESSMENT: Stable left pubic rami fractures and left sacral wing fracture. PLAN: We will have her start working with physical therapy. We recommend that she be discharged to a rehab facility once she is medically stable. Dictated by MILAD Voss for Waylon Mcgee MD cc: MILAD Voss MD Amit V. Vora, MD
--- NOTE | 2018-09-29 09:40 | PROGRESS NOTE ---
DATE: 09/29/2018 Ms. Adkins was admitted yesterday with history of pelvis fracture. Her lungs are clear. Heart sounds are normal. She is in a lot of pain. We are going to start physical therapy, and let her do as much weightbearing as she can. We also discussed about rehab transfer to her. She has indicated a desire about that too. -4 cc: Sarbjit Escobedo MD
[2018-09-29] MEDS: PATIENT'S OWN MED PO SCH ×2 (10:18)
--- NOTE | 2018-09-29 14:27 | Diag Imaging Result Doc PS360 ---
CHEST-PORTABLE - 09/29/2018 INDICATION: rehab requirement to rule out any abnormality COMPARISON: 11/26/2016 FINDINGS: The lungs are normally expanded and clear. Heart size and mediastinal contours are normal. No pneumothorax or pleural effusion. IMPRESSION: Negative exam. Electronically signed by Rambo Casillas 09/29/2018 2:23 PM
[2018-09-29] MEDS: ZOCOR PO SCH (21:08)
[2018-09-29] MEDS: PRINZIDE 20/12.5MG PO SCH (21:08)
[2018-09-30] MEDS: ZOFRAN IV PRN (04:40)
[2018-09-30] MEDS: MORPHINE IV PRN ×5 (04:40→22:38)
--- NOTE | 2018-09-30 09:05 | ORTHOPAEDICS PROGRESS NOTE ---
DATE: 09/30/2018 SUBJECTIVE: Carmita Adkins has left superior and inferior rami fractures and a left sacral nondisplaced wing fracture. She is resting comfortably and has no complaints. Her pain is improved. She has actually walked 5 feet with Physical Therapy yesterday. ASSESSMENT: Stable pelvic fractures. PLAN: She can go to rehab when cleared medically. She is weightbearing as tolerated on the left lower extremity. She will return to see me in 1 months' time for followup x-rays. Dr. Aguirre is railroad construction director this weekend. He will be available if anything is needed from an orthopedic standpoint. cc: MD Sarbjit Dalton MD
[2018-09-30] MEDS: AMARYL PO SCH (09:31)
[2018-09-30] MEDS: VICON-C PO SCH (09:31)
[2018-09-30] MEDS: KLOR-CON PO SCH (09:31)
[2018-09-30] MEDS: CALTRATE 600 + D PO SCH (09:32)
[2018-09-30] MEDS: PRILOSEC PO SCH (09:32)
[2018-09-30] MEDS: COENZYME Q10 PO SCH (09:32)
[2018-09-30] MEDS: GLUCOPHAGE PO SCH ×2 (09:32→22:32)
[2018-09-30] MEDS: THERA M PLUS PO SCH (09:32)
[2018-09-30] MEDS: ASPIRIN PO SCH (09:32)
[2018-09-30] MEDS: VITAMIN D PO SCH (09:32)
[2018-09-30] MEDS: DITROPAN PO SCH ×3 (09:32→22:34)
[2018-09-30] MEDS: VOLTAREN PO SCH ×2 (09:32→22:33)
[2018-09-30] MEDS: PATIENT'S OWN MED PO SCH ×2 (09:34→09:35)
--- NOTE | 2018-09-30 12:04 | PROGRESS NOTE ---
DATE: 09/30/2018 Ms. Adkins's blood sugar was 110. She has diabetes. Chest x-ray is normal. She is trying to put some weight. We have a bed at [facility] tomorrow. We are going to discharge her tomorrow. -1 cc: Sarbjit Escobedo MD
--- NOTE | 2018-09-30 12:15 | DISCHARGE SUMMARY ---
ADMISSION DATE: 09/28/2018 DISCHARGE DATE: 10/01/2018 HOSPITAL COURSE: Ms. Adkins, who is a 77-year-old white female, was admitted following a fall at home. She had pelvic fractures of the left-sided pubic rami and nondisplaced fracture of the left sacral wing. Other labs revealed blood sugar of 110. Urinalysis was negative. Chest x-ray was unremarkable. She was seen by Dr. Mcgee, the orthopedic surgeon, who suggested that she is going to need medical treatment and gradually increase the weightbearing on her. She decided to go to the rehab and we will discharge her. FINAL DIAGNOSES: 1. Pelvic fracture. 2. Diabetes. 3. Hypertension. 4. Hyperlipidemia. I will follow her at [facility]. cc: Sarbjit Escobedo MD
[2018-09-30] MEDS: ZOCOR PO SCH (22:32)
[2018-09-30] MEDS: PRINZIDE 20/12.5MG PO SCH (22:33)
[2018-10-01 07:38] VITALS: BP 123/44
[2018-10-01] MEDS: ASPIRIN PO SCH (11:57)
[2018-10-01] MEDS: KLOR-CON PO SCH (11:57)
[2018-10-01] MEDS: THERA M PLUS PO SCH (11:58)
[2018-10-01] MEDS: CALTRATE 600 + D PO SCH (11:58)
[2018-10-01] MEDS: COENZYME Q10 PO SCH (11:59)
[2018-10-01] MEDS: VOLTAREN PO SCH (11:59)
[2018-10-01] MEDS: VICON-C PO SCH (11:59)
[2018-10-01] MEDS: GLUCOPHAGE PO SCH (11:59)
[2018-10-01] MEDS: DITROPAN PO SCH (12:00)
[2018-10-01] MEDS: PRILOSEC PO SCH (12:00)
[2018-10-01] MEDS: VITAMIN D PO SCH (12:01)
[2018-10-01] MEDS: AMARYL PO SCH (12:01)
== END 2018-10-01 12:29 | DRG 552 ==
LOC: SUPCPDRO → ED 07:48 → 4N 11:17
PROVIDERS: ADMIT Internal Medicine; ATTEND Internal Medicine
CPT/HCPCS: 71010; 71045; 72110; 72192; 73502; 81001; 82948; 96361; 96374; 96375; 97116; 97162; 97530; 99285; A9270; J2270; J2405; J7030; XXXXX